=== PATIENT | female | born 1935 | race Caucasian/White ===

== ENCOUNTER 2022-08-18 15:35 | Emergency (ER) | payer MEDICARE ==
[2022-08-18] MEDS ORDERED: predniSONE 10 MG Tab PO ONE (15:36)
== END 2022-08-18 16:40 | disposition home or self-care (01) ==
LOC: FB.ED 15:35
DX: M25.531 Pain in right wrist (principal); Z88.0 Allergy status to penicillin; Z91.048 Other nonmedicinal substance allergy status; Z79.899 Other long term (current) drug therapy; X50.3XXA Overexertion from repetitive movements, initial encounter
CPT/HCPCS: 73110; 99283; J7512